=== PATIENT | male | born 1955 | race African-American/Black ===

== ENCOUNTER 2016-03-23 04:33 | Inpatient (IN) | payer BC, OTHER ==
[~2016-03-23] VITALS: Ht 190.5 cm; Wt 112.0 kg
[2016-03-23 04:35] VITALS: Ht 190.5 cm; Wt 112.0 kg
[2016-03-23] MEDS ORDERED: morphine 2 MG INJ IV STA (04:41)
[2016-03-23] MEDS ORDERED: ASPIRIN 325 MG TAB PO STA (04:41)
[2016-03-23] MEDS ORDERED: ONDANSETRON 4 MG INJ IV STA (04:41)
--- NOTE | 2016-03-23 05:10 | RADRPT ---
PROCEDURE: XR Chest. CLINICAL INDICATION: Chest pain TECHNIQUE: An AP view of the chest was obtained. COMPARISON: No prior exam is available for comparison. FINDINGS: There is prominence of the interstitial markings. No pleural effusion or pneumothorax is seen. Th e cardiomediastinal silhouette is mildly enlarged . Calcifications are seen within the aortic arch. The osseous structures demonstrate senescent changes. IMPRESSION: 1. Mild prominence of the interstitial markings, may reflect mild underlying interstitial edema or chronic lung changes. 2. Mild cardiomegaly and aortic atherosclerosis. RPTAT: HH .Rena Wynn MD, MD Date Time Electronically viewed and signed by .Rena Wynn MD, on 03/23/2016 05:10 .G/
[2016-03-23 05:22] LABS: INR 0.99; PROTIME 13.1 Sec (12.2-14.2)
[2016-03-23 05:23] LABS: PARTIAL THROMBOPLASTIN TIME 28.6 Sec (25.0-35.0)
[2016-03-23 05:28] LABS: POTASSIUM 4.4 mmol/L (3.5-5.1)
[2016-03-23 05:30] LABS: CREATININE 0.86 mg/dl (0.61-1.24)
[2016-03-23 05:31] LABS: CALCIUM 9.4 mg/dl (8.4-10.2)
[2016-03-23 05:39] LABS: BASOPHILS % 0.3 % (0.0-2.0); EOSINOPHILS # 0.1 10^3/ul (0.0-0.5); EOSINOPHILS % 1.2 % (0.0-7.0); HEMATOCRIT 43.6 % (42.0-52.0); HEMOGLOBIN 14.5 g/dl (14.0-18.0); LYMPHOCYTES # 1.5 10^3/ul (0.8-2.9); LYMPHOCYTES % 16.4 % (15.0-51.0); MEAN CORPUSCULAR HEMOGLOBIN 30.7 pg (29.0-33.0); MEAN CORPUSCULAR HGB CONC 33.4 g/dl (32.0-37.0); MEAN CORPUSCULAR VOLUME 92.1 fl (82.0-101.0); MEAN PLATELET VOLUME 8.7 fl (7.4-10.4); MONOCYTE # 0.8 10^3/ul (0.3-0.9); MONOCYTES % 8.4 % (0.0-11.0); NEUTROPHILS % 73.7 % (39.0-77.0); PLATELET COUNT 229 10^3/UL (140-440); RED BLOOD COUNT 4.73 10^6/ul (4.70-6.10); RED CELL DISTRIBUTION WIDTH 15.7 % (11.5-14.5); UNCORRECTED WBC 9.4 10^3/ul (4.8-10.8); WHITE BLOOD COUNT 9.4 10^3/ul (4.8-10.8)
[2016-03-23 05:43] LABS: CONDITION 1; LH ANALYZER COMMENTS 1; TROPONIN-I 0.046 ng/ml (0.00-0.12)
--- NOTE | 2016-03-23 06:16 | ERA ---
ER Documentation Chief Complaint Date/Time DATE: 03/23/16 TIME: 06:11 Chief Complaint chest pain 20 minutes ago HPI This 60-year-old male presented with left-sided nonradiating pressure-like chest pain that began 20 minutes prior to his arrival. Is a coming by shortness of breath he states that he did vomit one time. Nothing is made the pain better or worse and that time. States that he has chills right now. Denies fevers. Has a history of a stent in his abdominal aorta for AAA repair. He's not sure if he is had a heart attack in the past. ROS All systems reviewed and are negative except as per history of present illness. Allergies Allergies: Coded Allergies: No Known Allergy (Unverified , 03/23/16) PMhx/Soc History of Surgery: Yes (abdominal hearnia) Anesthesia Reaction: No Hx Neurological Disorder: No Hx Respiratory Disorders: No Hx Cardiac Disorders: No (heart blockage per pt?) Hx Psychiatric Problems: No Hx Miscellaneous Medical Probl: Yes (HTN) Hx Alcohol Use: Yes Hx Substance Use: Yes (snort coccaine) Hx Tobacco Use: Yes Smoking Status: Current every day smoker Physical Exam Vitals Vital Signs Date Time Temp Pulse Resp B/P Pulse Ox O2 Delivery O2 Flow Rate FiO2 03/23/16 05:46 90 14 130/86 95 Room Air 03/23/16 05:00 94 13 136/94 99 Room Air 03/23/16 04:35 96.6 119 20 133/90 98 Physical Exam Const: [] No acute distress Head: Atraumatic Eyes: Normal Conjunctiva, EOMI, PERRLA ENT: Normal External Ears, Nose and Mouth. Neck: Full range of motion..~ No meningismus. Resp: Clear to auscultation bilaterally Cardio: Regular mild tachycardia, no murmurs Abd: Soft, non tender, non distended. Normal bowel sounds Skin: No petechiae or rashes Back: No midline or flank tenderness Ext: No cyanosis, or edema Neur: Awake and alert oriented 3, no focal deficits Psych: Normal Mood and Affect Result Diagram: 03/23/16 0454 03/23/16 0454 Results 24 hrs Laboratory Tests Test 03/23/16 04:54 Activated Partial Thromboplast Time 28.6Sec Anion Gap 19 B-Type Natriuretic Peptide 2380PG/ML Basophils # 0.010^3/ul Basophils % 0.3% Blood Morphology Comment Blood Urea Nitrogen 15mg/dl Calcium Level 9.4mg/dl Carbon Dioxide Level 26mmol/L Chloride Level 101mmol/L Creatinine 0.86mg/dl Eosinophils # 0.110^3/ul Eosinophils % 1.2% Glucose Level 107mg/dl Hematocrit 43.6% Hemoglobin 14.5g/dl INR International Normalized Ratio 0.99 Lactic Acid Level 2.3mmol/L Lymphocytes # 1.510^3/ul Lymphocytes % 16.4% Mean Corpuscular Hemoglobin 30.7pg Mean Corpuscular Hemoglobin Concent 33.4g/dl Mean Corpuscular Volume 92.1fl Mean Platelet Volume 8.7fl Monocytes # 0.810^3/ul Monocytes % 8.4% Neutrophils # 7.010^3/ul Neutrophils % 73.7% Nucleated Red Blood Cells # 0.010^3/ul Nucleated Red Blood Cells % 0.0/100WBC Platelet Count 88512^3/UL Potassium Level 4.4mmol/L Prothrombin Time 13.1Sec Prothrombin Time Ratio 1.0 Red Blood Count 4.7310^6/ul Red Cell Distribution Width 15.7% Sodium Level 142mmol/L Troponin I 0.046ng/ml White Blood Count 9.410^3/ul Current Medications Medications (Trade) Dose Ordered Sig/Jorje Route PRN Reason Start Time Stop Time Status Last Admin Dose Admin Aspirin (Aspirin) 325 mg ONCE STAT PO 03/23/16 04:41 03/23/16 04:43 DC 03/23/16 04:57 Morphine Sulfate (morphine) 2 mg ONCE STAT IV 03/23/16 04:41 03/23/16 04:43 DC 03/23/16 04:57 Ondansetron HCl (Zofran Inj) 4 mg ONCE STAT IV 03/23/16 04:41 03/23/16 04:43 DC 03/23/16 04:57 Procedures/MDM 50-year-old male sitting at risk factors for acute coronary syndrome with acute onset chest pain. His troponin is negative. Patient's symptoms started 20 minutes prior to arrival and could well be a change coronary syndrome. His initial troponin is negative. His EKG is nonischemic but does show Q waves indicating possible recurrent infarction the past. BNP is elevated consistent with congestive heart failure. Patient was given 325 mg aspirin as well as 2 g of morphine. Said that his pain subsided significantly. He remained stable on the monitor and is tachycardia resolved as soon as he had stopped talking give his history. He admitted to telemetry under Dr. Plascencia for further evaluation and management. EKG interpretation: Sinus tachycardia rate of 101, left axis deviation, no ST or T-wave changes concerning for acute ischemia, Q waves in the inferior leads, normal intervals monitoring engineer interpretation: Initial sinus tachycardia resolved spontaneously. No other arrhythmias Chest x-ray interpretation: No acute process, no widened mediastinum, no diffuse primary edema, no pneumothorax, no fractures Departure Diagnosis: Primary Impression: Chest pain Additional Impressions: Dyspnea CHF (congestive heart failure) Condition: Serious LORY RIBEIRO DO Mar 23, 2016 06:15
[2016-03-23] MEDS ORDERED: ACETAMINOPHEN 325 MG TAB PO PRN (06:30)
[2016-03-23] MEDS ORDERED: ONDANSETRON 4 MG INJ IV PRN (06:30)
[2016-03-23] MEDS ORDERED: TAMS0.4C2 PO (07:48)
[2016-03-23] MEDS ORDERED: METO-448 PO (08:07)
[2016-03-23] MEDS ORDERED: ASPI81TA3 PO (08:07)
[2016-03-23] MEDS ORDERED: CLOP75TA27 PO (08:08)
[2016-03-23] MEDS ORDERED: ATOR80TA75 PO (08:08)
[2016-03-23] MEDS ORDERED: APIX2.5T PO (08:08)
[2016-03-23] MEDS ORDERED: RISP2TAB93 PO (08:09)
[2016-03-23] MEDS ORDERED: PANT40TA4 PO (08:09)
[2016-03-23 09:52] VITALS: TEMP 97.1
[2016-03-23 11:59] LABS: TROPONIN-I 0.04 ng/ml (0.00-0.12)
[2016-03-23 12:01] LABS: CK-MB 3.86 ng/ml (0.0-2.4)
[2016-03-23 12:23] VITALS: PULSE 106
[2016-03-23] MEDS ORDERED: HYDROCODONE/APAP (5/325) TAB PO PRN (12:30)
[2016-03-23] MEDS ORDERED: LORAZEPAM 1 MG TAB PO PRN (12:30)
[2016-03-23] MEDS ORDERED: AMLODIPINE 10 MG TAB PO SCH (12:30)
[2016-03-23] MEDS ORDERED: SOD CHLORIDE 0.9% 1,000 ML IV SCH (12:30)
[2016-03-23 12:49] LABS: ALBUMIN 4.3 g/dl (3.3-4.9)
[2016-03-23 12:52] LABS: BILIRUBIN,INDIRECT 0.6 mg/dl (0-1.1); BILIRUBIN,TOTAL 0.6 mg/dl (0.2-1.3); CHOL/HDL RATIO 4.6 RATIO; TOTAL PROTEIN 8.6 g/dl (6.1-8.1)
--- NOTE | 2016-03-23 14:09 | RADRPT ---
Echocardiogram Report Patient Name: JOSE L CONKLIN Gender: Male Date: 1955 Study Date: 23-Mar-2016 Dry Cell Tester: Claire Bellamy [facility] Location: 518 Ref. Physician: JOVAN ALTAMIRANO Quality: Adequate Procedures: Transthoracic echocardiogram with complete 2D, M-Mode, and doppler examination. Indications: Chest Pain. 2D/M Mode Doppler Measurement Value Normal Ranges Measurement Value Normal Ranges LVIDd 2D 4.9 3.5 - 5.6 cm AV Peak Jose 1.5 m/sec LVIDs 2D 2.5 2.1 - 4.1 cm AV Peak PG 8.8 mmHg LVPWd 2D 1.4 0.6 - 1.1 cm MV E Peak Jose 0.4 m/sec IVSd 2D 1.3 0.6 - 1.1 cm MV A Peak Jose 0.5 m/sec AoR Diam 2D 3.9 2.0 - 3.7 cm MV E/A 0.8 EDV 2D 115.4 cm3 MV Decel Time 159 msec ESV 2D 15.0 cm3 MV Decel Dooly 2 LA Dimen 2D 5.2 2.3 - 4.0 cm MV E/A 0.8 Findings Left Ventricle: Normal left ventricular systolic function. Normal left ventricular cavity size. Normal left ventricular wall thickness. Ejection fraction is visually estimated at 55 %. Tissue Doppler/Mitral Doppler indices are consistent with impaired relaxation (Stage I diastolic dysfunction). Right Ventricle: Normal right ventricular size. Normal right ventricular systolic function. Left Atrium: There is moderate enlargement of left atrium. Right Atrium: The right atrium is normal in size. Mitral Valve: Mitral valve leaflets appear mildly thickened. Mild mitral annular calcification. Trace mitral regurgitation. Aortic Valve: Normal appearance of the aortic valve. No significant aortic stenosis or insufficiency. Tricuspid Valve: Normal appearance of the tricuspid valve. Unable to obtain RVSP due to minimal presence of tricuspid regurgitation. Pericardium: Normal pericardium with no significant pericardial effusion. Aorta: There is aortic root dilation. IVC: Normal size and normal respiratory collapse consistent with normal right atrial pressure. Conclusions Normal left ventricular systolic function. Normal left ventricular cavity size. Normal left ventricular wall thickness. Ejection fraction is visually estimated at 55 %. Tissue Doppler/Mitral Doppler indices are consistent with impaired relaxation (Stage I diastolic dysfunction). No significant valvular stenosis or regurgitation seen. Unable to obtain RVSP due to minimal presence of tricuspid regurgitation. RA pressure is 3 mmHg. Electronically Signed By: Norman Simpson 23-Mar-2016 14:07:43 -0800 Patient Name: JOSE L CONKLIN Study Date: 23-Mar-2016 [id number]
--- NOTE | 2016-03-23 14:24 | CONS ---
Date/Time of Note Date/Time of Note DATE: 03/23/16 TIME: 14:16 Assessment/Plan Assessment/Plan Chief Complaint/Hosp Course Chest pain: secondary to cocaine use. Transient and now resolved. No acute ST changes on EKG, trops negative. Possibly had transient vasospasm. Otherwise he denies exertional angina so further testing would not be indicated as this was clearly caused by the cocaine. His Echo is also normal. h/o AAA repair HTN -ok for discharge from cardiac standpoint if ambulates and remains asymptomatic -strongly advised to not use cocaine or other drugs -f/u as outpt Problems: Consultation Date/Type/Reason Admit Date/Time Mar 23, 2016 at 06:18 Date of Consultation: Mar 23, 2016 Type of Consultation: Cardiology Reason for Consultation Chest pain Referring Provider: JOVAN ALTAMIRANO Hx of Present Illness 60 yo M with a h/o HTN, AAA repair, who presented with chest pain. The pt notes that he was having a bachelor constitution party for his friend at his office and he and his friends used cocaine. They also had women with them. About 1-2 hours after the cocaine he started to have chest pain. Since admission the pain has resolved. He notes that the last time he used cocaine was 3 yrs ago. He is a counselor for alcohol abuse. Prior to this event he denies having any chest pain with activities. No SOB. Wants to go home. per HPI Social History Smoking Status: Current every day smoker Exam/Review of Systems Vital Signs Vitals Vital Signs Date Time Temp Pulse Resp B/P Pulse Ox O2 Delivery O2 Flow Rate FiO2 03/23/16 12:23 106 03/23/16 09:52 97.1 19 115/69 99 Room Air Exam Constitutional: alert, oriented Psych: no complaints Head: atraumatic, normocephalic Neck: No jvd Respiratory: clear to auscultation, No crackles/rales Cardiovascular: regular rate and rhythm, No edema, No systolic murmur Gastrointestinal: non-tender Extremities: normal pulses Neurological: nl mental status, nl speech Results Result Diagram: 03/23/16 0454 03/23/16 0454 Results 24 hrs Laboratory Tests Test 03/23/16 04:54 03/23/16 08:50 03/23/16 11:10 Activated Partial Thromboplast Time 28.6 Anion Gap 19 H B-Type Natriuretic Peptide 2380 H Basophils # 0.0 Basophils % 0.3 Blood Morphology Comment Blood Urea Nitrogen 15 Calcium Level 9.4 Carbon Dioxide Level 26 Chloride Level 101 Creatinine 0.86 Eosinophils # 0.1 Eosinophils % 1.2 Glucose Level 107 Hematocrit 43.6 Hemoglobin 14.5 INR International Normalized Ratio 0.99 Lactic Acid Level 2.3 H 1.4 2.7 H Lymphocytes # 1.5 Lymphocytes % 16.4 Mean Corpuscular Hemoglobin 30.7 Mean Corpuscular Hemoglobin Concent 33.4 Mean Corpuscular Volume 92.1 Mean Platelet Volume 8.7 Monocytes # 0.8 Monocytes % 8.4 Neutrophils # 7.0 Neutrophils % 73.7 Nucleated Red Blood Cells # 0.0 Nucleated Red Blood Cells % 0.0 Platelet Count 229 Potassium Level 4.4 Prothrombin Time 13.1 Prothrombin Time Ratio 1.0 Red Blood Count 4.73 Red Cell Distribution Width 15.7 H Sodium Level 142 Troponin I 0.046 0.040 White Blood Count 9.4 Alanine Aminotransferase (ALT/SGPT) 20 Albumin 4.3 Alkaline Phosphatase 139 H Aspartate Amino Transf (AST/SGOT) 35 Cholesterol Level 187 Cholesterol/HDL Ratio 4.6 Creatine Kinase 253 H Creatine Kinase Index 1.5 Creatinine Kinase MB (Mass) 3.86 H Direct Bilirubin 0.00 HDL Cholesterol 40 Indirect Bilirubin 0.6 LDL Cholesterol, Calculated 130 Magnesium Level 2.0 Total Bilirubin 0.6 Total Protein 8.6 H Triglycerides Level 84 Medications Medications Current Medications Apixaban (Eliquis) 2.5 mg BID PO ; Start 03/23/16 at 21:00 Aspirin (Aspirin) 81 mg DAILY PO ; Start 03/24/16 at 09:00 Atorvastatin Calcium (Lipitor) 80 mg QHS PO ; Start 03/23/16 at 21:00 Clopidogrel Bisulfate (plaVIX) 75 mg DAILY PO ; Start 03/24/16 at 09:00 Pantoprazole (Protonix Tab) 40 mg DAILY@06 PO ; Start 03/24/16 at 06:00 Risperidone (Risperdal) 2 mg DAILY PO ; Start 03/24/16 at 09:00 Tamsulosin HCl (Flomax) 0.4 mg HS PO ; Start 03/23/16 at 21:00 Amlodipine Besylate (Norvasc) 10 mg DAILY PO ; Start 03/23/16 at 12:30 Lorazepam (Ativan) 1 mg Q6H PRN PO ANXIETY; Start 03/23/16 at 12:30 Acetaminophen/ Hydrocodone Bitart 1 tab 1 tab Q6H PRN PO pain; Start 03/23/16 at 12:30 Sodium Chloride (NS) 1,000 ml @ 125 mls/hr Q8H IV ; Start 03/23/16 at 12:30; Stop 03/24/16 at 04:29 JUDI BURGER Mar 23, 2016 14:24
[2016-03-23 16:24] VITALS: BP 115/78; RESP 19
[2016-03-23 16:34] VITALS: PULSE 92
[2016-03-23 17:15] LABS: TROPONIN-I 0.029 ng/ml (0.00-0.12)
[2016-03-23 17:18] LABS: CK-MB 4.01 ng/ml (0.0-2.4)
[2016-03-23] MEDS ORDERED: SOD CHLORIDE 0.9% 100 ML ONE (17:56)
[2016-03-23] MEDS ORDERED: IOHEXOL 100 ML ONE (17:56)
--- NOTE | 2016-03-23 18:43 | RADRPT ---
PROCEDURE: CT Chest Angiogram with contrast. CLINICAL INDICATION: Aneurysm, chest pain TECHNIQUE: CT scan of the chest with contrast was performed on a multidetector high-resolution CT scanner. The patient was scanned following the uncomplicated intravenous administration of 100 cc o f Isovue 300 contrast. Coronal and sagittal reformatted images were obtained from the axial source images. Additional 3D volumetric renderings were created. Images were reviewed on a [employer] PACS workstation. The total exam CTDI equals 70/20 mGy and the total exam DLP equals 815 mGy-cm. COMPARISON: Correlation chest x-ray today FINDINGS: Technically adequate exam for the evaluation of the pulmonary arteries to the proximal segmental lev el. No central intraluminal filling defects are seen. The distal lower lobe pulmonary artery branche s are obscured by respiratory artifact. Ascending thoracic aortic aneurysm measuring up to 4.3cm. Enlarged pulmonary trunk. Bibasilar atelectasis. Coronary arterial atherosclerosis. Cardiomegaly. No mediastinal or hilar lymphadenopathy. No pleural or pericardial effusion. The visualized upper abdomen is grossly unremarkable. Degenerative changes to the thoracic spine are seen. IMPRESSION: No evidence of central pulmonary embolus. Ascending thoracic aortic aneurysm measures up to 4.3 cm. Enlarged pulmonary trunk is nonspecific but can be seen with pulmonary arterial hypertension. Bibasilar atelectasis. Coronary arterial atherosclerosis. Cardiomegaly. No pleural or pericardial effusion. RPTAT: AA .Tom Pelaez MD, MD Date Time Electronically viewed and signed by .Tom Pelaez MD, MD on 03/23/2016 18:42 .T/
[2016-03-23 20:06] VITALS: BP 120/65; RESP 20
[2016-03-23 20:22] VITALS: PULSE 92
[2016-03-23] MEDS ORDERED: ATORVASTATIN 80 MG TAB PO SCH (21:00)
[2016-03-23] MEDS ORDERED: APIXABAN 5 MG TABLET PO SCH (21:00)
[2016-03-23] MEDS ORDERED: TAMSULOSIN (SR) 0.4 MG CAP PO SCH (21:00)
[2016-03-24] MEDS ORDERED: PANTOPRAZOLE (EC) 40 MG TAB PO SCH (06:00)
--- NOTE | 2016-03-24 06:48 | HP ---
DATE OF ADMISSION: 03/23/2016 PRESENTING COMPLAINT: Chest pain. HISTORY OF PRESENTING COMPLAINT: This is a 60-year-old male with a past medical history of high blood pressure, who has an abdominal aortic aneurysm, who presented to the ER today with mid sternal chest pain. The patient states it was radiating to the mid upper back. The patient states the pain started about 10 p.m. last night. He rates the pain at about an 8/10. He reports the pain was associated with shortness of breath. There was no upper extremity radiation or jaw radiation, however. The patient admit to continued tobacco use and admits to snorting cocaine. He reports that he was snorting cocaine around the time the symptoms started. He denies abdominal pain, nausea, or vomiting. He denies passing out episodes and he denies blood in his stool. PAST MEDICAL HISTORY: 1. High blood pressure. 2. Aortic aneurysm. SURGICAL HISTORY: Repair of abdominal aortic aneurysm. ALLERGIES: THE PATIENT DENIES DRUG ALLERGIES. SOCIAL HISTORY: Positive for tobacco and cocaine use. FAMILY HISTORY: Positive for high blood pressure and CAD disease. REVIEW OF SYSTEMS: A 12-point review of systems was done, with pertinent findings as noted in the HPI. PHYSICAL EXAMINATION: VITAL SIGNS: Temperature 97.1, pulse 80, respirations 19, blood pressure 115/69 , saturation is 99% on room air. GENERAL: On examination the patient was sleeping comfortably; however he has been medicated in the ER. HEENT: Head was normocephalic. Pupils are equal and reactive. Mucous membranes are moist. NECK: Supple. CHEST: Clear to auscultation, without wheezing or crackles. Anterior chest wall with no tenderness to palpation. CARDIOVASCULAR: S1 and 2, without added sounds or murmurs. ABDOMEN: Soft, nontender, nondistended. EXTREMITIES: The patient has no lower extremity edema. NEUROLOGIC: He had no focal deficits. SKIN: There was no obvious rash or jaundice. LABORATORY VALUES: CBC was completely normal, as was his basic metabolic profile. Concerning was his serum lactic acid level that was fluctuating anywhere from 1.4 to 2.7. His creatinine kinase was also elevated , as was his CK-MB, but his troponin was normal. His basic metabolic profile and his coagulation profile was otherwise unremarkable. His beta natriuretic peptide was elevated at 2,380 and his EKG did not show any acute elevation or depression. Chest x-ray was read as unremarkable by radiology. ASSESSMENT: A 60-year-old male with the followin. Chest pain. Rule out acute coronary syndrome, with a history of aortic aneurysm. Rule out ACS 2. History of the abdominal aortic aneurysm, status post stent in the past. 3. Ongoing tobacco abuse. 4. Ongoing cocaine/substance abuse. 5. The patient has mild rhabdomyolsis, as well as lactic acidosis, for which cause is not quite clear a this time. PLAN: I suggested we admit the patient to telemetry floor. He will benefit from a cardiology evaluation. Plan further intervention and workup. Cardiology consultation and a probable stress test. The patient is on beta howard therapy at home, but in view of his continued cocaine abuse, I will hold that for now. We will also provide supportive care with pain control, antiemetics and antibiotics if he does need that. Prophylaxis should be with Lovenox and Pepcid. For further information and clarification, please review the patient's chart and my orders. Further clinical interventions will depend on the patient's hospital course and sales representative consultant recommendations. Dictated By: JOVAN ALTAMIRANO MD, BA/VALERIE Conf#: [id number] DID#: [id number] MTDPatricia
[2016-03-24] MEDS ORDERED: CLOPIDOGREL 75 MG TAB PO SCH (09:00)
[2016-03-24] MEDS ORDERED: ASPIRIN 81 MG TAB PO SCH (09:00)
[2016-03-24] MEDS ORDERED: RISPERIDONE 2 MG TAB PO SCH (09:00)
== END 2016-03-23 20:43 | disposition left against medical advice (07) | DRG 894 ==
LOC: E/R 04:33 → TEL 06:18
PROVIDERS: ADMIT Internal Medicine; ATTEND Internal Medicine
DX: F14.10 Cocaine abuse, uncomplicated (principal); M62.82 Rhabdomyolysis; R07.9 Chest pain, unspecified; F17.200 Nicotine dependence, unspecified, uncomplicated
CPT/HCPCS: 36415; 71010; 71275; 80048; 80061; 80076; 82550; 82553; 83605; 83735; 83880; 84484; 85025; 85610; 85730; 87040; 93005; 93306; 96374; 96375; J2270; J2405; J7030; Q9967